=== PATIENT | female | born 1945 ===

== ENCOUNTER 2025-06-07 09:17 | Outpatient (AMB) | payer OTHER, SELFPAY ==
--- NOTE | 2025-06-07 09:58 | A.OFFVIS_ITS ---
Intake Visit Reasons: 6m Allergies No Known Allergies Allergy (Verified 06/07/25 10:03) Medication List - Last Reconciled 06/07/25 by Candy Zhu CNP amitriptyline 50 mg PO BEDTIME 90 days baclofen mg PO carbamazepine mg PO estradiol 0.01%(0.1mg/gram) vaginal hydrochlorothiazide 12.5 mg PO DAILY lisinopril mg PO simvastatin mg PO HPI Comments Details: 80-year-old RH woman wtih right sided facial pain since 2003. It was like jolts of electricity with severe pain with no trigger. She had gamma knife procedure in [place] around that time, which helped. Pain came back next year when she probably had the radiofreq ablation procedure. It made her face numb but, pain was also controlled. Pain came back again around 2019 when she was treated with medications and with medication pain was at bay. She was doing okay. Pain was generally well controlled with medications. No medication side effects. She had few twinges of pain to right side of face on occasion, but was not severe. Sleep was up and down. Mood was so-so. 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 It was hard around the holidays after losing her and the passing of her great-granddaughter earlier this year. [facility] Medical History (Updated 06/07/25 @ 10:02 by Candy Zhu CNP) Macular degeneration Glaucoma Hypertension Trigeminal neuralgia Review of Systems Const Denies chills, Denies daytime sleepiness, Denies difficulty sleeping, Denies fatigue, Denies fever(s), Denies frequent falls, Denies headache(s), Denies increased appetite, Denies poor appetite, Denies snoring, Denies weakness, Denies weight gain and Denies weight loss Eyes Denies loss of vision ENT Denies vertigo, Denies dizziness and Denies headache(s) Card Denies chest pain at rest, Denies chest pain with activity, Denies syncope, Denies leg edema and Denies palpitations Resp Denies snoring GI Denies constipation, Denies heartburn, Denies diarrhea and Denies nausea Denies urinary frequency, Denies urinary incontinence and Denies urinary urgency Musc Denies abnormal gait, Denies numbness and Denies tingling Skin/Breast Denies dry skin and Denies rash Neuro Denies abnormal gait, Denies vertigo, Denies dizziness, Denies syncope, Denies frequent falls, Denies headache(s), Denies lack of coordination, Denies loss of vision, Denies memory loss, Denies numbness, Denies restless legs, Denies seizure-like activity, Denies tingling, Denies paresthesias, Denies tremor(s) and Denies weakness Psych Denies anxiety, Denies depression, Denies auditory hallucinations, Denies memory loss, Denies visual hallucinations and Denies suicidal ideation Endo Denies fatigue and Denies palpitations Physical Exam Const Other: General Appearance:? normal, in no acute distress. Skin:? no rashes, no significant birthmarks. Heart:? S1, S2 normal, no murmurs. Lungs:? clear anteriorly and posteriorly. Extremities:? no edema. Psych:? alert, oriented, cognitive function intact, cooperative with exam. Neuro Other: Mental Status:?Normal attention, orientation, memory and affect.? Cranial Nerves:?Pupils are equal, round and reactive to light. External occular muscles are intact. Visual pendleton are full. Face is symmetrical. Facial sensations are normal. Tongue is midline. Palate elevates symmetrically. Shoulder shrugging is normal. Hearing to bedside conversation is normal. Sensory Exam:?....? Coordination:?No ataxia,?no titubation.? Gait Exam: Within normal limits. Cerebellar Signs:?[id number] is okay. Extrapyramidal System:?No tremor, rigidity with normal facial expressions.? Pronator Drift:?Not present.? Involuntary Movements:?No tremors seen.? Speech:?Normal.? Assessment & Plan Assessment & Plan (1) Trigeminal neuralgia: Code(s): G50.0 - Trigeminal neuralgia Category: Medical Plan: Continue carbamazepine 200mg 1 tablet twice a day. Continue amitriptyline 50mg 1 tablet at bedtime. Continue baclofen 10mg 1 tablet twice a day. Follow up in 6 months or sooner as needed. Medications: New baclofen 10 mg PO BID 180 tabs 1RF 90 days carbamazepine 200 mg PO BID 180 tabs 1RF 90 days Coding Level of Care Code Est Pt Level 4 (85779) Diagnoses Trigeminal neuralgia G50.0
== END 2025-06-07 10:16 | disposition home or self-care (01) ==
PROVIDERS: Visit Provider Registered Nurse
DX: G50.0 Trigeminal neuralgia (principal)
CPT/HCPCS: 99214